=== PATIENT | male | born 1955 | race African-American/Black ===

== ENCOUNTER 2021-06-09 14:45 | Emergency (ER) | payer MEDICAID, MEDICARE ==
[~2021-06-09] VITALS: Ht 172.7 cm; Wt 120.0 kg
[~2021-06-09 14:45] MED LIST: ACET-3161 PO; AMLO10TA80; CARI350T28 PO; VALS80TA2
[2021-06-09] MEDS ORDERED: MORPHINE SULFATE 4 MG/ML CPJ (NOT FOR IM USE) IV STA (15:10)
[2021-06-09] MEDS ORDERED: ONDANSETRON HCL 4MG/2ML INJ IV STA (15:10)
[2021-06-09] MEDS ORDERED: SODIUM CHLORIDE 0.9% 1,000 ML IV ONE (15:15)
[2021-06-09 16:00] LABS: BASOPHILS % 0.4 % (0.0-2.0); EOSINOPHILS % 4.5 % (0.0-5.0); HEMATOCRIT. 45.1 % (42.0-52.0); HEMOGLOBIN. 15.4 g/dL (14.0-18.0); MEAN CORPUSCULAR HEMOGLOBIN 32.3 pg (28.0-32.0); MEAN CORPUSCULAR VOLUME 94.7 fL (80.0-94.0); MEAN PLATELET VOLUME 11.6 fl (7.4-10.4); MONOCYTES % 8.9 % (2.0-8.0); NEUTROPHILS % 67.2 % (40.0-76.0); PLATELET 169 x1000/uL (130-400); RED BLOOD CELL COUNT 4.77 mill/uL (4.7-6.1); RED CELL DISTRIBUTION WIDTH 13.2 % (11.6-14.6)
[2021-06-09 16:06] LABS: CHLORIDE 106 mEq/L (98-107)
[2021-06-09 16:10] LABS: PROTHROMBIN TIME 10.8 sec (9.6-11.0)
[2021-06-09] MEDS ORDERED: DEXAMETHASONE 10 MG/ML VIAL IV NR (16:45)
[2021-06-09] MEDS: MORPHINE SULFATE 4 MG/ML CPJ (NOT FOR IM USE) IV NR ×2 (16:45→21:53)
[2021-06-09] MEDS ORDERED: HYDROMORPHONE HCL/PF 2MG/ML CPJ IV ONE ×2 (18:15→21:15)
[2021-06-09 19:13] LABS: CLARITY URINE CLEAR (CLEAR); COLOR URINE YELLOW (YELLOW); KETONES URINE 2+ (NEGATIVE); LEUKOCYTE ESTERASE URINE NEGATIVE (NEGATIVE); NITRITE URINE NEGATIVE (NEGATIVE); OCCULT BLOOD URINE NEGATIVE (NEGATIVE); PROTEIN URINE NEGATIVE (NEGATIVE)
[2021-06-10 00:35] VITALS: BP 159/88
== END 2021-06-10 00:38 | disposition left against medical advice (07) ==
LOC: ER 14:45
DX: M48.061 Spinal stenosis, lumbar region without neurogenic claudication (principal); M54.32 Sciatica, left side; M54.31 Sciatica, right side; R26.9 Unspecified abnormalities of gait and mobility; I10 Essential (primary) hypertension; Z20.822 Contact with and (suspected) exposure to COVID-19
CPT/HCPCS: 36415; 72148; 80053; 81003; 83690; 85025; 85610; 87426; 96374; 96375; 96376; 99285; J1170; J2270; J2405; J7030; Z7610